=== PATIENT | male | born 2005 | race Caucasian/White ===

== ENCOUNTER 2024-07-25 08:44 | Emergency (ER) | payer OTHER, SELFPAY ==
--- NOTE | ~2024-07-25 | US_ITS ---
EXAMINATION: US scrotum doppler DATE: 07/25/2024 09:31 INDICATION: Right-sided testicular pain TECHNIQUE: Testicular sonogram utilizing grayscale and Doppler COMPARISON: None. FINDINGS: The right testis measures 4.6 x 2.2 x 3.0 cm. The left testis measures 4.7 x 2.5 x 2.7 cm. Symmetric normal grayscale appearance to both testes. There is normal vascular flow to both testes. 3-4 mm anec hoic right epididymal head cyst. There is a thickened edematous appearance with hypervascularity on c olor Doppler to the pigtail of the right epididymis consistent with epididymitis. The left epididymis is normal with normal vascular flow. There is no varicocele or hydrocele. IMPRESSION: 1. Edematous and hyperemic right epididymal tail suspicious for epididymitis. 2. Normal bilateral testes with no evident associated orchitis. Reviewed, dictated and finalized at location B.
[2024-07-25 08:50] VITALS: BP 150/78; PULSE 96; RESP 14; TEMP 36.6; O2SAT 100
[2024-07-25 10:14] LABS: Add Urine Microscopic? YES; Appearance Urine Clear (Clear); Bacteria Urine None Seen /hpf; Bilirubin Urine Negative (Negative); Blood Urine Negative (Negative); Color Urine Yellow (Yellow); Glucose Urine UA Negative (Negative); Ketones Urine Trace mg/dL (Negative); Leukocyte Esterase Ur 1+ LEU/UL (Negative); Nitrate Urine Negative (Negative); Non Pathogenic Casts 0-2; Protein Urine Negative (Negative); RBC Urine 0-2 /hpf (0-2); Specific Grav Ur 1.013 (1.001-1.035); Squamous Epithelial Cell Urine None Seen /hpf (Few); Urobilinogen Urine 0.2 mg/dL (<2.0)
--- NOTE | 2024-07-25 10:32 | ED.GENADULT ---
HPI - General Adult General Chief complaint: Urogenital-Male Stated complaint: right testicle pain Time Seen by Provider: 07/25/24 10:23 History of Present Illness HPI narrative: This is a 18-year-old male presenting with right testicle pain pain started last night. He has also had swelling and tenderness to the testicle. He is says that he is in a monogamous long distance relationship with his who girlfriend visited last week. He has not had any penile discharge or irritation. He denies history or concern for STDs. Related Data Allergies Allergy/AdvReac Type Severity Reaction Status Date / Time No Known Allergies Allergy Verified 07/25/24 08:45 Exam Narrative: APPEARANCE: No apparent distress. Head: atraumatic. EYES: EOMI, NOSE: Atraumatic NECK: Trachea midline RESPIRATORY: No increased rate of breathing CARDIOVASCULAR: RRR, ABDOMINAL: Non-distended : Normal external genitalia. Right testicle is tender along the epididymis. Pain is relieved with elevation. Cremasteric reflexes intact MUSCULOSKELETAl: No obvious deformities NEURO: Alert. Moving 4/4 extremities SKIN:: Warm, dry. Normal color PSYCHIATRIC: Normal affect Course Vital Signs Vital signs: Vital Signs Temperature 97.8 F 07/25/24 08:50 Pulse Rate 96 07/25/24 08:50 Respiratory Rate 14 07/25/24 08:50 Blood Pressure 150/78 H 07/25/24 08:50 Pulse Oximetry 100 07/25/24 08:50 Oxygen Delivery Room Air 07/25/24 08:50 Temperature 97.8 F 07/25/24 08:50 Pulse Rate 96 07/25/24 08:50 Respiratory Rate 14 07/25/24 08:50 Blood Pressure 150/78 H 07/25/24 08:50 Pulse Oximetry 100 07/25/24 08:50 Oxygen Delivery Room Air 07/25/24 08:50 Medical Decision Making [facility] Narrative Medical decision making narrative: -Course: 18-year-old male presenting ED right testicle pain. Ultrasound showed epididymitis. Physical exam consistent with epididymitis. Patient is not concerned STDs although symptoms started 1 week after his long distance partner came to visit him. STD testing sent. Patient will be treated with ceftriaxone and doxycycline. Given Urology follow-up. -DDX includes but is not limited to: Epididymitis, testicular torsion, STI Vital Signs Vital Signs: Vital Signs Temperature 97.8 F 07/25/24 08:50 Pulse Rate 96 07/25/24 08:50 Respiratory Rate 14 07/25/24 08:50 Blood Pressure 150/78 H 07/25/24 08:50 Pulse Oximetry 100 07/25/24 08:50 Oxygen Delivery Room Air 07/25/24 08:50 Temperature 97.8 F 07/25/24 08:50 Pulse Rate 96 07/25/24 08:50 Respiratory Rate 14 07/25/24 08:50 Blood Pressure 150/78 H 07/25/24 08:50 Pulse Oximetry 100 07/25/24 08:50 Oxygen Delivery Room Air 07/25/24 08:50 Lab Data Labs: Lab Results 07/25/24 Range/Units 09:56 Urine Color Pending Urine Appearance Pending Urine pH Pending Ur Specific [place] Pending Urine Protein Pending Urine Glucose (UA) Pending Urine Ketones Pending Ur Blood (Man) Pending Urine Nitrate Pending Urine Bilirubin Pending Urine Urobilinogen Pending Leukocyte Esterase Rfl Pending Discharge Plan Discharge Clinical Impression: Epididymitis Patient Disposition: Home Condition: Stable Instructions: Antibiotic Form, Epididymitis (ED) Additional Instructions: Please take the antibiotics as instructed. Please follow-up with urologist listed below 1 week. He can use Motrin and Tylenol for pain. If you develop fevers or worsening testicle pain please return to ED for re-evaluation. Patient Language: Palestinian Prescriptions: New doxycycline hyclate 100 mg capsule 100 mg PO DAILY Qty: 20 0RF ibuprofen 800 mg tablet 800 mg PO TID PRN (Reason: pain) 7 Days Qty: 21 0RF acetaminophen 500 mg tablet 1,000 mg PO TID PRN (Reason: loretta) 7 Days Qty: 42 0RF Follow-up/Referrals: PHYSICIAN,BEAUT[employer] CULTURIST APPRENTICE [Non-Staff] -
[2024-07-25] MEDS: IBUPROFEN 400 MG TABLET 800 MG PO (10:56)
[2024-07-25] MEDS: cefTRIAXone 1 GM VIAL 0.5 GM IM (10:56)
[2024-07-25] MEDS: ACETAMINOPHEN 500 MG TABLET 1000 MG PO (10:57)
[2024-07-25] MEDS: LIDOCAINE 1% LOCAL INJ 10 ML VIAL (10:58)
[2024-07-25] MEDS: DOXYCYCLINE HYCLATE 100 MG TABLET PO (11:00)
[2024-07-25 12:22] LABS: Trichomonas Vag PCR NOT DETECTED (NOT DETECTE)
[2024-07-25 12:46] LABS: Chlamydia trachomatis NOT DETECTED (NOT DETECTE); Neisseria gonorrhoeae PCR NOT DETECTED (NOT DETECTE)
== END 2024-07-25 11:10 | disposition home or self-care (01) ==
PROVIDERS: Emergency Provider Emergency Medicine
DX: N45.1 Epididymitis (principal)
CPT/HCPCS: 76870; 81001; 87086; 87491; 87591; 87661; 93976; 96372; 99284; A9270; J0696; J2003